=== PATIENT | male | born 1970 | race Caucasian/White ===

== ENCOUNTER 2019-04-15 16:38 | Emergency (ER) | payer OTHER ==
--- NOTE | 2019-04-15 16:48 | PDOC ---
Rapid Medical Evaluation Time Seen by Provider: 04/15/19 16:45 Medical Evaluation: 04/15/19 16:46 cc: left eye irritation hit accidentally in the eye by a child yesterday PE: + tearing of left eye +ejection orders: none this patient will proceed to Ed for further evaluation Discharge Disposition - Diagnosis Eye irritation - Referrals - Patient Instructions - Post Discharge Activity
[2019-04-15 16:50] VITALS: BP 146/97; PULSE 79; TEMP 98.1; BMI 24.7
[2019-04-15] MEDS ORDERED: FLUORESCEIN NA 1 EA STRIP OS ONE (17:03)
[2019-04-15] MEDS ORDERED: FLUORESCEIN NA 1 EA STRIP ONE (17:05)
--- NOTE | 2019-04-15 17:24 | PDOC ---
History of Present Illness - General Chief Complaint: Eye Problem Stated Complaint: EYE PAIN Time Seen by Provider: 04/15/19 16:45 History Source: Patient Exam Limitations: Clinical Condition - History of Present Illness Initial Comments: 04/15/19 17:24 Patient with no significant past medical history present with complaint of left eye pain and redness status post playing around with his child yesterday and child accidentally hit him in the left eye. reported foreign body sensation in left eye. Reported mild blurry vision in left eye. Timing/Duration: 24 hours Past History - Past Medical History Allergies/Adverse Reactions: Allergies Allergy/AdvReac Type Severity Reaction Status Date / Time No Known Allergies Allergy Verified 04/15/19 16:50 Home Medications: Ambulatory Orders Ofloxacin 0.3% Ophth Soln [Ocuflox -] 2 drop OS Q6H 5 Days #1 bottle 04/15/19 COPD: No Diabetes: Yes - Immunization History Immunization Up to Date: No - Suicide/Smoking/Psychosocial Hx Smoking History: Never smoked Have you smoked in the past 12 months: No Information on smoking cessation initiated: No Hx Alcohol Use: Yes Drug/Substance Use Hx: No Review of Systems - Review of Systems Able to Perform ROS?: Yes Is the patient limited Bel[place]ian proficient: No Constitutional: No: Malaise, Weakness HEENTM: Yes: Symptoms Reported, See HPI, Eye Pain (left eye), Blurred Vision ( mild blurry vision in left eye). No: Double Vision Respiratory: No: Symptoms reported Cardiac (ROS): No: Symptoms Reported ABD/GI: No: Nausea, Vomiting Neurological: No: Headache, Dizziness All Other Systems: Reviewed and Negative *Physical Exam - Vital Signs Last Vital Signs Temp Pulse Resp BP Pulse Ox 98.1 F 79 18 146/97 100 04/15/19 16:47 04/15/19 16:47 04/15/19 16:47 04/15/19 16:47 04/15/19 16:47 - Physical Exam Comments: 04/15/19 17:28 GENERAL: Well developed, well nourished. Awake and alert. No acute distress. HEENT: Moderately injected left conjunctiva. Small areas superficial left corneal abrasion on exam with fluorescein stain. Visual acuity 20/20 in bilateral eyes. 20/20 right eye and 20/40 left eye. Normocephalic, atraumatic. PERRLA, EOMI. No conjunctival pallor. Sclera are non-icteric. Moist mucous membranes. Oropharynx is clear. NECK: Supple. Full ROM. CARDIOVASCULAR: Regular rate and rhythm. No murmurs, rubs, or gallops. Distal pulses are 2+ and symmetric. PULMONARY: No evidence of respiratory distress. MUSCULOSKELETAL Normal range of motion at all joints. SKIN: Warm and dry. Normal capillary refill. No bruising or ecchymosis of left eye. NEUROLOGICAL: Alert, awake, appropriate. Gait is normal without ataxia. PSYCHIATRIC: Cooperative. Good eye contact. Appropriate mood General Appearance: Yes: Nourished, Appropriately Dressed, Mild Distress ED Treatment Course - Medications Given in the ED: ED Medications Discontinued Medications Generic Name Dose Route Start Last Admin Trade Name Freq PRN Reason Stop Dose Admin Fluorescein Sodium 1 ea 04/15/19 17:03 04/15/19 17:05 Fluorets - OS 04/15/19 17:04 1 ea ONCE ONE Administration Medical Decision Making - Medical Decision Making 04/15/19 17:26 Patient with no significant past medical history present with complaint of left eye pain and redness status post playing around with his child yesterday and child accidentally hit him in the left eye. reported foreign body sensation in left eye. Reported mild blurry vision in left eye. Exam significant for moderately injected left conjunctiva. Small areas superficial corneal abrasion in left eye on exam under fluorescein stain. Patient reported feeling better after tetracaine eyedrops. Patient sent to eye station for eye irrigation. Reassess after eye irrigation 04/15/19 17:51 Patient report improvement in eye pain. Patient stable for discharge on Oflocaxin eye drops with ophthalmology follow-up *DC/Admit/Observation/Transfer Diagnosis at time of Disposition: Eye irritation Left corneal abrasion Qualifiers: Encounter type: initial encounter Qualified Code(s): S05.02XA - Injury of conjunctiva and corneal abrasion without foreign body, left eye, initial encounter - Discharge Dispostion Disposition: HOME Condition at time of disposition: Stable Decision to Admit order: No - Prescriptions Prescriptions: Ofloxacin 0.3% Ophth Soln [Ocuflox -] 2 drop OS Q6H 5 Days #1 bottle - Referrals Referrals: Tanner Gray MD [Staff Physician] - - Patient Instructions Printed Discharge Instructions: Corneal Abrasion Additional Instructions: Use eye drops as prescribed. 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
== END 2019-04-15 17:42 | disposition home or self-care (01) ==
LOC: JERFT 16:38
PROC: 4A07X0Z Measurement of Visual Acuity, External Approach (ICD-10-PCS; principal; 2019-04-15)
DX: S05.02XA Injury of conjunctiva and corneal abrasion without foreign body, left eye, initial encounter (principal); W50.0XXA Accidental hit or strike by another person, initial encounter; Y93.89 Activity, other specified; Y92.038 Other place in apartment as the place of occurrence of the external cause; Y99.8 Other external cause status
CPT/HCPCS: 99173; 99281-25

== ENCOUNTER 2019-08-27 18:03 | Emergency (ER) | payer OTHER ==
[2019-08-27] MEDS ORDERED: DIPHTH,PERTUSS(ACELL),TET 0.5 ML DISP.SYRIN IM ONE ×2 (18:08→18:45)
[2019-08-27 18:09] VITALS: BP 146/94; PULSE 77; TEMP 98; BMI 24.7
--- NOTE | 2019-08-27 18:13 | PDOC ---
Rapid Medical Evaluation Time Seen by Provider: 08/27/19 18:06 Medical Evaluation: Allergies Allergy/AdvReac Type Severity Reaction Status Date / Time No Known Allergies Allergy Verified 04/15/19 16:50 08/27/19 18:08 Pt c/o: rt 1st digit injury secondary to nailgun, unknown last tdap, hx dm Pt on brief exam: noted puncture to rt 1st digit through the base of nail Pt ordered for: xray and tdap Pt to proceed to ED Discharge Disposition - Diagnosis Puncture wound of skin from metal nail - Referrals - Patient Instructions - Post Discharge Activity
[2019-08-27] MEDS ORDERED: CEFAZOLIN 1 GM in DEXTROSE 5%-WATER - 50 ML IVPB ONE (18:42)
[2019-08-27] MEDS ORDERED: CEFAZOLIN 1 GM/D5W 1 GM/50 ML BAG ONE (18:52)
--- NOTE | 2019-08-27 19:09 | PDOC ---
History of Present Illness - General Chief Complaint: Injury Stated Complaint: INJURED FINGER Time Seen by Provider: 08/27/19 18:06 - History of Present Illness Initial Comments: 08/27/19 19:04 48-year-old male with a past medical history of diabetes presents for evaluation of a right thumb injury. All working with a pneumatic airgun which fire his nails he shot his thumb with a nail removed it and comes to the ER for treatment. He has minimal discomfort at this time. Past History - Past Medical History Allergies/Adverse Reactions: Allergies Allergy/AdvReac Type Severity Reaction Status Date / Time No Known Allergies Allergy Verified 08/27/19 18:09 Home Medications: Ambulatory Orders Ofloxacin 0.3% Ophth Soln [Ocuflox -] 2 drop OS Q6H 5 Days #1 bottle 04/15/19 Cephalexin [Keflex] 500 mg PO QID 7 Days #28 capsule 08/27/19 COPD: No Diabetes: Yes - Immunization History Immunization Up to Date: No - Psycho Social/Smoking Cessation Hx Smoking History: Never smoked Have you smoked in the past 12 months: No Hx Alcohol Use: Yes Drug/Substance Use Hx: No Review of Systems - Review of Systems Musculoskeletal: Yes: See HPI *Physical Exam - Vital Signs Last Vital Signs Temp Pulse Resp BP Pulse Ox 98 F 77 18 146/94 98 08/27/19 18:05 08/27/19 18:05 08/27/19 18:05 08/27/19 18:05 08/27/19 18:05 - Physical Exam Comments: 08/27/19 19:05 There is a puncture wound at the proximal aspect of the nail. No puncture wound on the palmar aspect of the thumb IPJ works no gross sensorimotor deficits. There is centimeter laceration of the nail horizontally oriented. ED Treatment Course - Medications Given in the ED: ED Medications Discontinued Medications Generic Name Dose Route Start Last Admin Trade Name Freq PRN Reason Stop Dose Admin Diphtheria/Tetanus/Acell Pertussis 0.5 ml 08/27/19 18:08 08/27/19 18:47 Boostrix - IM 08/27/19 18:09 0.5 ml .ONCE ONE Administration Medical Decision Making - Medical Decision Making 08/27/19 19:07 There is no acute fracture on radiographs today. We will treat this with local wound care the wound was cleansed in the emergency room with soap and water wet- to-dry dressing was placed instructed to change the dressing twice daily hand surgery follow-up was discussed as well as prophylactic antibiotics for home use tetanus was updated Discharge - Discharge Information Problems reviewed: Yes Clinical Impression/Diagnosis: Puncture wound of skin from metal nail Condition: Stable Disposition: HOME - Admission No - Additional Discharge Information Prescriptions: Cephalexin [Keflex] 500 mg PO QID 7 Days #28 capsule - Follow up/Referral Referrals: Chalino Keller MD [Staff Physician] - - Patient Discharge Instructions Additional Instructions: Please take the antibiotics as directed. Tylenol for pain. Return to the emergency room for any issues. Please follow-up with hand surgery in 1 to 2 days without fail for further evaluation and treatment options. As you was shown today, continue the wet-to-dry dressing changes at home twice daily until seen by hand surgery and told otherwise. - Post Discharge Activity
== END 2019-08-27 19:16 | disposition home or self-care (01) ==
LOC: JERFT 18:03
PROC: 3E03329 Introduction of Other Anti-infective into Peripheral Vein, Percutaneous Approach (ICD-10-PCS; principal; 2019-08-27)
PROC: 3E0234Z Introduction of Serum, Toxoid and Vaccine into Muscle, Percutaneous Approach (ICD-10-PCS; 2019-08-27)
DX: S61.031A Puncture wound without foreign body of right thumb without damage to nail, initial encounter (principal); W29.4XXA Contact with nail gun, initial encounter; Y93.89 Activity, other specified; Y92.89 Other specified places as the place of occurrence of the external cause; Y99.8 Other external cause status
CPT/HCPCS: 73140-TC-RT-FY; 90471; 90715; 96365; 99281-25

== ENCOUNTER 2022-06-12 17:08 | Emergency (ER) | payer SELFPAY ==
[2022-06-12 17:16] VITALS: BP 126/81; PULSE 98; RESP 18; TEMP 98; BMI 22.8
== END 2022-06-12 19:33 | disposition home or self-care (01) ==
LOC: JER 17:08
DX: T25.221A Burn of second degree of right foot, initial encounter (principal)
CPT/HCPCS: 99281-25